=== PATIENT | female | born 1950 | race Caucasian/White ===

== ENCOUNTER → 2017-07-23 | Outpatient (CLI) | payer OTHER ==
[~2017-07-23] MED LIST: ASPIR 8181 MG PO; ATORVASTATIN CA40 MG PO; AZITHROMYCIN250 MG PO; CEFDINIR300 MG PO; CLARITIN10 MG PO; DUONEB 2.5-0.5 M3 ML INH; HYDROCHLOROTH12.5 M1 PO; IMDUR 60 MG TAB60 M1 PO; JANUMET 50-5001 EACH PO; KEFLEX500 M1 PO; METOPROLOL ER-1 EAC1 PO; MUCINEX600 MG PO; NASONEX17 GM NASAL; PREDNISONE 10 M10 MG PO; PREDNISONE 20 M20 MG PO; TOPROL XL100 MG PO; TRAMADOL 50 MG50 MG PO; VITAMIN D1000 UNI1 PO; ZOLOFT100 MG PO
[2017-07-23 16:38] LABS: CHOLESTEROL 122 mg/dL (<200); HDL CHOLESTEROL 52 mg/dL (>40); LDL CHOLESTEROL 52 mg/dL (<100); TC:HDL 2.3 Ratio (Not establshd); TRIGLYCERIDE 91 mg/dL (<150); VLDL 18 mg/dL (<40)
[2017-07-23 16:40] LABS: SERUM ASSESSMENT Clear
== END ==
LOC: M.LAB 16:09
PROVIDERS: Internal Medicine Cardiovascular Disease
DX: E78.2 Mixed hyperlipidemia (principal); I10 Essential (primary) hypertension

== ENCOUNTER 2017-09-18 15:50 | Inpatient (IN) | payer OTHER ==
[~2017-09-18] VITALS: Ht 162.6 cm; Wt 98.2 kg
[~2017-09-18 15:50] MED LIST changes: -AZITHROMYCIN250 MG PO; -CEFDINIR300 MG PO; -HYDROCHLOROTH12.5 M1 PO; -KEFLEX500 M1 PO; -MUCINEX600 MG PO; -PREDNISONE 10 M10 MG PO; -TOPROL XL100 MG PO; -TRAMADOL 50 MG50 MG PO
[2017-09-18 16:19] LABS: ABSOLUTE BASOPHILS 0.1 thou/uL (0.0-0.2); ABSOLUTE EOSINOPHILS 0.2 thou/uL (0.0-0.7); ABSOLUTE LYMPHOCYTES 1.3 thou/uL (0.8-5.3); ABSOLUTE MONOCYTES 0.6 thou/uL (0.0-1.2); ABSOLUTE NEUTROPHILS 6.1 thou/uL (1.6-8.1); BASOPHILS 0.8 %; EOSINOPHILS 2.6 %; HEMATOCRIT 42.4 % (37.0-47.0); HEMOGLOBIN 14.2 gm/dL (12.0-15.0); LYMPHOCYTES 15.4 %; MCH 30.7 pg (26.0-34.0); MCHC 33.5 g/dL (28.0-37.0); MCV 91.5 fL (80.0-100.0); MONOCYTES 7.4 %; MPV 8.4 fl. (7.2-11.1); NUCLEATED RBCS 0 /100WBC; PLATELET COUNT* 281 thou/uL (150-400); POLYS 73.8 %; RBC 4.64 mil/uL (4.20-5.00); RDW-CV 14.1 % (10.5-14.5); WBC 8.3 thou/uL (4.0-11.0)
[2017-09-18 16:29] LABS: ANION GAP 5 mmol/L (7-16); APTT 23.8 Seconds (25.0-31.3); BUN 7 mg/dL (7-18); CALCIUM 9.1 mg/dL (8.5-10.1); CHLORIDE 100 mmol/L (98-107); CO2 30 mmol/L (21-32); CREATININE 0.7 mg/dL (0.6-1.3); GLUCOSE 242 mg/dL (70-99); INR 1.1; POTASSIUM 3.8 mmol/L (3.5-5.1); PROTIME 10.3 Seconds (9.20-11.50); SODIUM 135 mmol/L (136-145)
[2017-09-18 16:39] LABS: ALBUMIN 3.7 g/dL (3.4-5.0); ALKALINE PHOSPHATASE 94 U/L (46-116); LIPASE 118 U/L (73-393); MAGNESIUM 1.7 mg/dL (1.8-2.4); NT-PRO BRAIN NAT PEPTIDE 522 pg/mL (<300); SGOT 22 U/L (15-37); SGPT 39 U/L (30-65); TOTAL BILIRUBIN 0.4 mg/dL (<0.1-1.0); TOTAL PROTEIN 7.9 g/dL (6.4-8.2); TROPONIN-I LEVEL <0.06 ng/mL (<0.06)
[2017-09-18 18:30] VITALS: BP 168/74
[2017-09-18 19:05] VITALS: BP 168/73
[2017-09-18 21:00] VITALS: BP 148/63
[2017-09-18] MEDS ORDERED: CLARITIN10 MG PO (22:34)
[2017-09-18] MEDS ORDERED: JANUMET 50-5001 EACH PO (22:34)
[2017-09-18] MEDS ORDERED: TOPROL XL100 MG PO (22:37)
[2017-09-18] MEDS ORDERED: HYDROCHLOROTH12.5 M1 PO (22:37)
[2017-09-18] MEDS ORDERED: TRAMADOL 50 MG50 MG PO (22:38)
[2017-09-19] VITALS: BP 153/85
[2017-09-19 04:00] VITALS: BP 184/98
[2017-09-19 04:42] LABS: HEMATOCRIT 45.3 % (37.0-47.0); HEMOGLOBIN 14.9 gm/dL (12.0-15.0); MCH 30.6 pg (26.0-34.0); MCV 92.9 fL (80.0-100.0); MPV 8.1 fl. (7.2-11.1); RBC 4.87 mil/uL (4.20-5.00); RDW-CV 13.7 % (10.5-14.5); WBC 6.3 thou/uL (4.0-11.0)
[2017-09-19 04:56] LABS: ALBUMIN 3.5 g/dL (3.4-5.0); CALCIUM 9.2 mg/dL (8.5-10.1); CREATININE 0.7 mg/dL (0.6-1.3); MAGNESIUM 2.1 mg/dL (1.8-2.4); POTASSIUM 4.1 mmol/L (3.5-5.1); TOTAL BILIRUBIN 0.4 mg/dL (<0.1-1.0)
[2017-09-19 08:15] VITALS: BP 136/73
--- NOTE | 2017-09-19 10:42 | EKG ---
[place] [address] ELECTROCARDIOGRAM REPORT Name: ETIENNE VARGAS Room: [address] IN [facility]#: [id number] Admission: 09/18/17 Attend Phys: Rhiannon Thomas MD Discharge: Date of : 50 Report #: [id number] THIS REPORT FOR: //name// [facility] ED Test Date: 2017-09-18 Test Time: 16:18:44 Pat Name: ETIENNE VARGAS Department: Room: Gender: F Turkey Pinner: Chi HARPER : 1950 Requested By: Julius Lopez Order Number: [id number] MD: Edson Woods Measurements Intervals [place] Rate: 82 P: 65 [place]: 123 QRS: 84 QRSD: 131 T: 24 QT: 394 QTc: 461 Interpretive Statements Sinus rhythm Left atrial enlargement Right bundle branch block No previous ECG available for comparison Electronically Signed On 09-19-2017 10:42:40 CDT by Edson Woods [email or web address] <ELECTRONICALLY SIGNED> By: Edson Woods MD, [facility] 09/19/17 1042 1618 17 Edson Woods MD, FACC /EPI
[2017-09-19 11:57] VITALS: BP 119/47
[2017-09-19 15:38] VITALS: BP 108/50
[2017-09-19 19:50] VITALS: BP 145/56
[2017-09-20 03:54] VITALS: BP 122/53
[2017-09-20 08:00] VITALS: BP 128/52
[2017-09-20 16:20] VITALS: BP 111/41
[2017-09-20 20:20] VITALS: BP 120/53
[2017-09-21 04:35] LABS: HEMATOCRIT 42.6 % (37.0-47.0); HEMOGLOBIN 13.9 gm/dL (12.0-15.0); MCH 30.2 pg (26.0-34.0); MCHC 32.5 g/dL (28.0-37.0); MCV 92.9 fL (80.0-100.0); MPV 8.9 fl. (7.2-11.1); RBC 4.58 mil/uL (4.20-5.00); RDW-CV 14.2 % (10.5-14.5); WBC 11.9 thou/uL (4.0-11.0)
[2017-09-21 05:07] LABS: CALCIUM 9.2 mg/dL (8.5-10.1); CREATININE 0.9 mg/dL (0.6-1.3); POTASSIUM 4.4 mmol/L (3.5-5.1)
[2017-09-21 05:16] LABS: MAGNESIUM 2.1 mg/dL (1.8-2.4)
[2017-09-21] MEDS ORDERED: PREDNISONE 10 M10 MG PO (08:09)
[2017-09-21] MEDS ORDERED: AZITHROMYCIN250 MG PO (08:09)
[2017-09-21] MEDS ORDERED: CEFDINIR300 MG PO (08:09)
[2017-09-21] MEDS ORDERED: MUCINEX600 MG PO (08:09)
[2017-09-21 09:00] VITALS: BP 153/83
[2017-09-21 17:46] VITALS: BP 153/83
[2017-09-21 17:54] VITALS: BP 153/83
== END 2017-09-21 18:00 | disposition home or self-care (01) | DRG 193 ==
LOC: M.ERS 15:50 → M.TBA-ER 17:27 → M.2W 17:27 → M.ORTHSURG 09-20 17:47
PROVIDERS: Emergency Medicine Emergency Medical Services; ADMIT Internal Medicine
DX: J18.9 Pneumonia, unspecified organism (principal); J96.01 Acute respiratory failure with hypoxia; J44.1 Chronic obstructive pulmonary disease with (acute) exacerbation; R65.10 Systemic inflammatory response syndrome (SIRS) of non-infectious origin without acute organ dysfunction; J44.0 Chronic obstructive pulmonary disease with (acute) lower respiratory infection; I10 Essential (primary) hypertension; I25.2 Old myocardial infarction; J20.8 Acute bronchitis due to other specified organisms; E11.9 Type 2 diabetes mellitus without complications; I25.10 Atherosclerotic heart disease of native coronary artery without angina pectoris; Z86.73 Personal history of transient ischemic attack (TIA), and cerebral infarction without residual deficits; Z95.5 Presence of coronary angioplasty implant and graft; Z90.710 Acquired absence of both cervix and uterus; Z87.891 Personal history of nicotine dependence; Z90.49 Acquired absence of other specified parts of digestive tract; Z79.2 Long term (current) use of antibiotics; Z79.4 Long term (current) use of insulin; Z79.899 Other long term (current) drug therapy

== ENCOUNTER 2018-01-08 12:51 | Inpatient (IN) | payer OTHER ==
[~2018-01-08] VITALS: Ht 162.6 cm; Wt 99.8 kg
[~2018-01-08 12:51] MED LIST changes: +AZITHROMYCIN250 MG PO; +CEFDINIR300 MG PO; +HYDROCHLOROTH12.5 M1 PO; +MUCINEX600 MG PO; +PREDNISONE 10 M10 MG PO; +TOPROL XL100 MG PO; +TRAMADOL 50 MG50 MG PO
[2018-01-08 13:02] VITALS: BP 138/64
[2018-01-08 13:35] LABS: ABSOLUTE BASOPHILS 0.1 thou/uL (0.0-0.2); ABSOLUTE EOSINOPHILS 0.2 thou/uL (0.0-0.7); ABSOLUTE LYMPHOCYTES 1.6 thou/uL (0.8-5.3); ABSOLUTE MONOCYTES 0.5 thou/uL (0.0-1.2); ABSOLUTE NEUTROPHILS 7.3 thou/uL (1.6-8.1); BASOPHILS 1.2 %; EOSINOPHILS 2.2 %; HEMATOCRIT 42.1 % (37.0-47.0); HEMOGLOBIN 13.8 gm/dL (12.0-15.0); LYMPHOCYTES 16.4 %; MCH 30.4 pg (26.0-34.0); MCHC 32.7 g/dL (28.0-37.0); MCV 92.8 fL (80.0-100.0); MONOCYTES 5.5 %; MPV 7.9 fl. (7.2-11.1); NUCLEATED RBCS 0 /100WBC; PLATELET COUNT* 293 thou/uL (150-400); POLYS 74.7 %; RBC 4.54 mil/uL (4.20-5.00); RDW-CV 13.7 % (10.5-14.5); WBC 9.8 thou/uL (4.0-11.0)
[2018-01-08 13:53] LABS: APTT 22.4 Seconds (25.0-31.3)
[2018-01-08 13:56] LABS: ANION GAP 4 mmol/L (7-16); BUN 13 mg/dL (7-18); CALCIUM 8.8 mg/dL (8.5-10.1); CHLORIDE 103 mmol/L (98-107); CO2 32 mmol/L (21-32); CREATININE 1.2 mg/dL (0.6-1.3); GLUCOSE 152 mg/dL (70-99); POTASSIUM 4.3 mmol/L (3.5-5.1); SODIUM 139 mmol/L (136-145)
[2018-01-08 14:28] LABS: ALBUMIN 3.4 g/dL (3.4-5.0); ALKALINE PHOSPHATASE 74 U/L (46-116); LIPASE 213 U/L (73-393); MAGNESIUM 1.6 mg/dL (1.8-2.4); NT-PRO BRAIN NAT PEPTIDE 275 pg/mL (<300); SGOT 26 U/L (15-37); SGPT 26 U/L (30-65); TOTAL BILIRUBIN 0.4 mg/dL (<0.1-1.0); TOTAL PROTEIN 7.2 g/dL (6.4-8.2); TROPONIN-I LEVEL <0.06 ng/mL (<0.06)
[2018-01-08 14:41] VITALS: BP 132/56
[2018-01-08] MEDS ORDERED: CLARITIN10 MG PO (15:07)
[2018-01-08 15:53] VITALS: BP 132/56
--- NOTE | 2018-01-08 17:06 | EKG ---
[place] [address] ELECTROCARDIOGRAM REPORT Name: ETIENNE VARGAS Room: [address] ADM IN .R.#: [id number] Admission: 01/08/18 Attend Phys: Rosemary Colorado Discharge: Date of : 50 Report #: [id number] THIS REPORT FOR: //name// [facility] ED Test Date: 2018-01-08 Test Time: 13:06:52 Pat Name: ETIENNE VARGAS Department: Room: [facility] Gender: F Gerentological Physiotherapist: Rosemary CROFT : 1950 Requested By: Daniel Pereira Order Number: [id number] MD: Eduar Welch Measurements Intervals [place] Rate: 77 P: [place]: QRS: 83 QRSD: 129 T: 19 QT: 404 QTc: 458 Interpretive Statements Atrial fibrillation Right bundle branch block Compared to ECG 09/18/2017 16:18:44 Sinus rhythm no longer present Atrial abnormality no longer present Electronically Signed On 01-08-2018 17:06:01 CDT by Eduar Welch [email or web address] <ELECTRONICALLY SIGNED> By: Eduar Welch MD, [facility] 01/08/18 1706 1306 1306 Eduar Welch MD, [facility] /EPI
[2018-01-08 20:00] VITALS: BP 166/67
[2018-01-09] VITALS: BP 145/70
[2018-01-09 04:00] VITALS: BP 131/61
--- NOTE | 2018-01-09 05:17 | NUR ---
ASSUMED PATIENT CARE AT 1900. PATIENT ALERT AND ORIENTED TIMES FOUR. NO COMPLAINTS OF PAIN OR DISCOMFORT NOTED THROUGHOUT SHIFT. IV PATENT. REMAINS ON O2 2L VIA NC. PATIENT EDUCATION DONE ON THE EFFECTS OF SOLU-MEDROL ON BLOOD SUGARS, ALAYING PATIENT CONCERNS. PATIENT EDUCATION CONTINUED WITH MEDICATIONS AND THEIR SIDE EFFECTS. UP AD LATANYA IN ROOM. CARD MAKER AND HOURLY ROUNDING COMPLETED DOCUMENTED.
[2018-01-09 08:35] VITALS: BP 141/75
[2018-01-09 12:00] VITALS: BP 138/56
--- NOTE | 2018-01-09 15:47 | NUR ---
SW met with pt to complete initial assessment, introduce self, and SW role. Pt alert, oriented. Pt lives at home with her friends. Pt has hx of HH and SNF at [facility]. Pt has a nebulizer through [facility]. Pt does not have oxygen at home but pt says she thinks she needs it. SW sent information to [facility] and if ordered at [place], SW explained to pt that SW could assist with ordering oxygen for home if pt does qualify. Pt does not anticipate any other needs at this time.
[2018-01-09 16:37] VITALS: BP 118/51
--- NOTE | 2018-01-09 17:32 | NUR ---
PATIENT HAS BEEN ALERT AND ORIENTED TODAY, VERY PLEASANT. UP AD LATANYA IN ROOM, CALL LIGHT IS IN REACH. HAS HAD NO COMMPLAINTS OF PAIN TODAY. VITAL SIGNS HAVE BEEN STABLE ON 2 LITERS OF OXYGEN. WILL CONTINUE TO MONITOR.
[2018-01-09 20:30] VITALS: BP 133/73
[2018-01-10] VITALS (7 sets, daily range): BP systolic 101–138; BP diastolic 40–72
--- NOTE | 2018-01-10 05:20 | NUR ---
PT SLEPT MOST OF SHIFT. ASSESSMENT DOCUMENTED. MEDS GIVEN PER E-MAY. IV PATENT. PT REMAINED ON 2L NC THIS SHIFT. NO REPORTS OF PAIN. NO CONCERNS AT THIS TIME, WILL CONTINUE WITH PLAN OF CARE.
[2018-01-10] MEDS ORDERED: KEFLEX500 M1 PO (11:12)
[2018-01-10] MEDS ORDERED: PREDNISONE 10 M10 MG PO (11:12)
--- NOTE | 2018-01-10 12:49 | NUR ---
Pt to dc to home today and will need home o2. CM will referral, o2 order, and ex ox to [facility] once available, asked for tank to be delievered to Pt's room.
--- NOTE | 2018-01-10 16:03 | NUR ---
PATIENT HAS BEEN ALERT AND ORIENTED TODAY VERY PLEASANT. UP AD LATANYA IN ROOM, VITAL SIGNS STABLE ON 2 LITERS OF OXYGEN. NO COMPLAINTS OF PAIN TODAY. PATIENT IS BEING DISCHARGED TO HOME WITH HOME OXYGEN TO USE DURING WITH ACTIVITY. DISCHARGE INSTRUCTIONS AND PRESCRIPTIONS GIVEN TO PATIENT, QUESTIONS ANSWERED FOR PATIENT. LEFT VIA WHEELCHAIR TO HOME.
== END 2018-01-10 16:05 | disposition home or self-care (01) | DRG 871 ==
LOC: M.ERS 12:51 → M.TBA-ER 14:25 → M.3W 14:25
PROVIDERS: Family Medicine; ADMIT Internal Medicine
DX: A41.9 Sepsis, unspecified organism (principal); J96.01 Acute respiratory failure with hypoxia; J69.0 Pneumonitis due to inhalation of food and vomit; J44.1 Chronic obstructive pulmonary disease with (acute) exacerbation; J44.0 Chronic obstructive pulmonary disease with (acute) lower respiratory infection; I10 Essential (primary) hypertension; I25.10 Atherosclerotic heart disease of native coronary artery without angina pectoris; E11.9 Type 2 diabetes mellitus without complications; I25.2 Old myocardial infarction; Z95.5 Presence of coronary angioplasty implant and graft; Z86.73 Personal history of transient ischemic attack (TIA), and cerebral infarction without residual deficits; Z90.710 Acquired absence of both cervix and uterus; Z90.49 Acquired absence of other specified parts of digestive tract; Z87.891 Personal history of nicotine dependence; Z79.899 Other long term (current) drug therapy; Z23 Encounter for immunization; J20.9 Acute bronchitis, unspecified

== ENCOUNTER → 2020-10-24 | Outpatient (CLI) | payer OTHER ==
[~2020-10-24] MED LIST changes: +KEFLEX500 M1 PO
[2020-10-24 15:35] LABS: ALBUMIN 3.8 g/dL (3.4-5.0); ALKALINE PHOSPHATASE 72 U/L (46-116); ANION GAP 6 mmol/L (7-16); BUN 17 mg/dL (7-18); CHLORIDE 100 mmol/L (98-107); CHOLESTEROL 138 mg/dL (<200); CO2 33 mmol/L (21-32); CREATININE 1.1 mg/dL (0.6-1.3); GLUCOSE 308 mg/dL (70-99); HDL CHOLESTEROL 42 mg/dL (>40); LDL CHOLESTEROL 58 mg/dL (<100); POTASSIUM 4.5 mmol/L (3.5-5.1); SERUM ASSESSMENT Clear; SGOT 14 U/L (15-37); SGPT 27 U/L (30-65); SODIUM 139 mmol/L (136-145); TC:HDL 3.3 Ratio (Not establshd); TOTAL BILIRUBIN 0.3 mg/dL (<0.1-1.0); TOTAL PROTEIN 7.3 g/dL (6.4-8.2); TRIGLYCERIDE 193 mg/dL (<150); VLDL 39 mg/dL (<40)
== END ==
LOC: M.LAB 15:03
PROVIDERS: ATTEND Nurse Practitioner
DX: I10 Essential (primary) hypertension (principal); E78.2 Mixed hyperlipidemia; E87.6 Hypokalemia

== ENCOUNTER 2021-03-17 19:40 | Inpatient (IN) | payer OTHER ==
[~2021-03-17] VITALS: Ht 160 cm; Wt 99.8 kg
[2021-03-17 19:43] VITALS: BP 151/126
[2021-03-17] MEDS ORDERED: LEXAPRO 10 MG T10 M1 PO (20:23)
[2021-03-17] MEDS ORDERED: NITROSTAT0.4 M1 PO (20:25)
[2021-03-17] MEDS ORDERED: FLEXERIL PO (20:26)
[2021-03-17] MEDS ORDERED: CEFDINIR300 MG PO (20:26)
[2021-03-17] MEDS ORDERED: FUROSEMIDE 40 M40 MG PO (20:27)
[2021-03-17] MEDS ORDERED: ALPRAZOLAM XR3 MG PO (20:27)
[2021-03-17] MEDS ORDERED: PIOGLITAZONE30 MG PO (20:28)
[2021-03-17] MEDS ORDERED: KLOR-CON 1010 MEQ PO (20:29)
[2021-03-17] MEDS ORDERED: ANORO ELLIPTA1 EACH INH (20:29)
[2021-03-17 20:30] LABS: ABSOLUTE BASOPHILS 0.1 thou/uL (0.0-0.2); ABSOLUTE EOSINOPHILS 0.1 thou/uL (0.0-0.7); ABSOLUTE LYMPHOCYTES 1.3 thou/uL (0.8-5.3); ABSOLUTE MONOCYTES 0.4 thou/uL (0.0-1.2); ABSOLUTE NEUTROPHILS 6.5 thou/uL (1.6-8.1); BASOPHILS 0.7 %; EOSINOPHILS 1.4 %; HEMATOCRIT 36.9 % (37.0-47.0); HEMOGLOBIN 11.7 gm/dL (12.0-15.0); LYMPHOCYTES 15.2 %; MCH 29.6 pg (26.0-34.0); MCHC 31.8 g/dL (28.0-37.0); MCV 93.2 fL (80.0-100.0); MONOCYTES 4.6 %; MPV 7.9 fl. (7.2-11.1); NUCLEATED RBCS 0 /100WBC; PLATELET COUNT* 250 thou/uL (150-400); POLYS 78.1 %; RBC 3.96 mil/uL (4.20-5.00); RDW-CV 15.2 % (10.5-14.5); WBC 8.3 thou/uL (4.0-11.0)
[2021-03-17 20:35] LABS: INFLUENZA A ANTIGEN Negative (Negative); INFLUENZA B ANTIGEN Negative (Negative)
[2021-03-17 20:39] LABS: CALCIUM 8.3 mg/dL (8.5-10.1); CREATININE 1.3 mg/dL (0.6-1.3); POTASSIUM 4.2 mmol/L (3.5-5.1)
[2021-03-17 20:50] LABS: ALBUMIN 3.2 g/dL (3.4-5.0); MAGNESIUM 2.1 mg/dL (1.8-2.4); TOTAL BILIRUBIN 0.2 mg/dL (<0.1-1.0); TOTAL PROTEIN 6.9 g/dL (6.4-8.2)
[2021-03-17 23:52] LABS: URINE BILIRUBIN NEGATIVE (Negative); URINE BLOOD 2+ (Negative); URINE CLARITY CLEAR; URINE COLOR YELLOW; URINE GLUCOSE-RANDOM 2+ (Negative); URINE KETONES TRACE (Negative); URINE LEUKOCYTES-REFLEX NEGATIVE (Negative); URINE NITRITE-REFLEX NEGATIVE (Negative); URINE PROTEIN 1+ (Negative); URINE SPECIFIC GRAVITY >= 1.030 (1.005-1.030); URINE UROBILINOGEN 0.2 E.U./dl (0.2-1.0)
[2021-03-18] VITALS (8 sets, daily range): BP systolic 117–155; BP diastolic 42–74
[2021-03-18 00:03] LABS: BACTERIA-REFLEX >30 Many /HPF (None Seen); CASTS None Seen /LPF (None Seen); MUCUS 4-6 Moderate strn/LPF (None Seen); SQUAMOUS 4-10 Moderate /LPF (0-3)
[2021-03-18 00:04] LABS: CRYSTALS None Seen /LPF (None Seen)
[2021-03-18 10:04] LABS: CHOLESTEROL 150 mg/dL (<200); HDL CHOLESTEROL 59 mg/dL (>40); LDL CHOLESTEROL 82 mg/dL (<100); TC:HDL 2.5 Ratio (Not establshd); TRIGLYCERIDE 47 mg/dL (<150); VLDL 9 mg/dL (<40)
[2021-03-18 10:05] LABS: SERUM ASSESSMENT Clear
--- NOTE | 2021-03-18 10:10 | EKG ---
[place] [address] ELECTROCARDIOGRAM REPORT Name: ETIENNE VARGAS RICHARD Room: [address] M.R.#: [id number] Admission: 03/17/21 Attend Phys: Lenny Booth, Discharge: Date of : 50 Date of Service: 03/17/211956 Report #: [id number] THIS REPORT FOR: //name// [facility] ED Test Date: 2021-03-17 Test Time: 19:57:13 Pat Name: ETIENNE VARGAS Department: Room: [facility] Gender: F Linen Room Attendant: DC : 1950 Requested By: Maki Desai Order Number: [id number] MD: Edson Woods Measurements Intervals [place] Rate: 101 P: 50 [place]: 126 QRS: 90 QRSD: 130 T: -10 QT: 383 QTc: 497 Interpretive Statements Sinus tachycardia Probable left atrial enlargement RBBB and LPFB Compared to ECG 01/08/2018 13:06:52 Left posterior fascicular block now present rate has increased Electronically Signed On 03-18-2021 10:10:22 RETAIL LOSS PREVENTION OFFICER by Edson Woods [email or web address] <ELECTRONICALLY SIGNED> By: Edson Woods MD, [facility] 03/18/21 1010 56 56 Edson Woods MD, [facility] /EPI
--- NOTE | 2021-03-18 10:20 | EKG ---
[place] [address] ELECTROCARDIOGRAM REPORT Name: ROME VARGASJOMAR RAMOS Room: [address] M.R.#: [id number] Admission: 03/17/21 Attend Phys: Lenny Booth, Discharge: Date of : 50 Date of Service: 03/18/21 0557 Report #: [id number] THIS REPORT FOR: //name// [facility] ED Test Date: 2021-03-18 Test Time: 05:57:57 Pat Name: ETIENNE VARGAS Department: Room: [place] [address] Gender: F Creative Writing English Professor: COLE : 1950 Requested By: Maki Desai Order Number: [id number] MD: Edson Woods Measurements Intervals [place] Rate: 95 P: 51 [place]: 142 QRS: 88 QRSD: 130 T: -12 QT: 383 QTc: 482 Interpretive Statements Sinus rhythm Probable left atrial enlargement Right bundle branch block Compared to ECG 03/17/2021 19:57:13 Sinus tachycardia no longer present Electronically Signed On 03-18-2021 10:19:57 REPORTER ANCHOR by Edson Woods [email or web address] <ELECTRONICALLY SIGNED> By: Edson Woods MD, [facility] 03/18/21 1019 0557 0557 Edosn Woods MD, [facility] /EPI
[2021-03-18 14:54] LABS: APTT 22.9 Seconds (25.0-31.3); PROTIME 10.3 Seconds (9.20-11.50)
[2021-03-19] VITALS (7 sets, daily range): BP systolic 104–148; BP diastolic 44–57
[2021-03-19 07:19] LABS: ABSOLUTE BASOPHILS 0.1 thou/uL (0.0-0.2); ABSOLUTE EOSINOPHILS 0.2 thou/uL (0.0-0.7); ABSOLUTE LYMPHOCYTES 2.4 thou/uL (0.8-5.3); ABSOLUTE MONOCYTES 0.5 thou/uL (0.0-1.2); ABSOLUTE NEUTROPHILS 5.3 thou/uL (1.6-8.1); BASOPHILS 0.9 %; EOSINOPHILS 1.9 %; HEMATOCRIT 31.6 % (37.0-47.0); HEMOGLOBIN 10.3 gm/dL (12.0-15.0); LYMPHOCYTES 28.8 %; MCH 30.2 pg (26.0-34.0); MCHC 32.6 g/dL (28.0-37.0); MCV 92.7 fL (80.0-100.0); NUCLEATED RBCS 0 /100WBC; PLATELET COUNT* 237 thou/uL (150-400); POLYS 62.4 %; WBC 8.5 thou/uL (4.0-11.0)
--- NOTE | 2021-03-19 13:15 | EKG ---
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: : 1950 Requested By: Lenny Booth Order Number: [id number] Reading MD: Ashwin Martinez Measurements Intervals [place] Rate: 115 P: 71 [place]: 137 QRS: 91 QRSD: 137 T: -18 QT: 352 QTc: 487 Interpretive Statements Sinus tachycardia Probable left atrial enlargement RBBB and LPFB Repol abnrm suggests ischemia, diffuse leads Compared to ECG 03/18/2021 05:57:57 Left posterior fascicular block now present Possible ischemia now present Sinus rate has increased Electronically Signed On 03-19-2021 13:14:50 CORE COMPOSER FEEDER by Ashwin Martinez [email or web address] <ELECTRONICALLY SIGNED> By: Ashwin Martinez MD, [facility] 03/19/21 1314 0853 0853 Ashwin Martinez MD, [facility] /EPI
[2021-03-20] VITALS (16 sets, daily range): BP systolic 119–143; BP diastolic 39–66
[2021-03-21 05:01] LABS: ABSOLUTE BASOPHILS 0.1 thou/uL (0.0-0.2); ABSOLUTE EOSINOPHILS 0.2 thou/uL (0.0-0.7); ABSOLUTE LYMPHOCYTES 1.8 thou/uL (0.8-5.3); ABSOLUTE MONOCYTES 0.5 thou/uL (0.0-1.2); ABSOLUTE NEUTROPHILS 4.3 thou/uL (1.6-8.1); BASOPHILS 1.1 %; EOSINOPHILS 3.6 %; HEMOGLOBIN 10.3 gm/dL (12.0-15.0); LYMPHOCYTES 25.9 %; MCH 29.8 pg (26.0-34.0); MCHC 32.2 g/dL (28.0-37.0); MCV 92.6 fL (80.0-100.0); MONOCYTES 6.9 %; MPV 9.1 fl. (7.2-11.1); NUCLEATED RBCS 0 /100WBC; PLATELET COUNT* 230 thou/uL (150-400); POLYS 62.5 %; RBC 3.46 mil/uL (4.20-5.00); RDW-CV 14.9 % (10.5-14.5); WBC 6.8 thou/uL (4.0-11.0)
[2021-03-21 05:27] LABS: CALCIUM 8.2 mg/dL (8.5-10.1); CREATININE 0.8 mg/dL (0.6-1.3); POTASSIUM 4.3 mmol/L (3.5-5.1)
[2021-03-21 06:32] VITALS: BP 156/54
[2021-03-21 08:47] VITALS: BP 145/53
[2021-03-21 12:12] LABS: pH 7.358 (7.340-7.450)
[2021-03-21 12:14] VITALS: BP 137/61
[2021-03-21 12:18] LABS: PCO2 51.3 mmHg (35.0-45.0)
--- NOTE | 2021-03-21 13:49 | EKG ---
[place] [address] ELECTROCARDIOGRAM REPORT Name: ALICIAETIENNEJOMAR RAMOS Room: [address] ADM IN ..#: [id number] Admission: 03/19/21 Attend Phys: Lenny Booth, Discharge: Date of : 50 Date of Service: 03/21/21 1012 Report #: [id number] THIS REPORT FOR: //name// [facility] Test Date: 2021-03-21 Test Time: 10:12:34 Pat Name: ETIENNE VARGAS Department: Room: [address] Gender: F Software Recruiter: CYNTHIA : 1950 Requested By: Sunshine Robles Order Number: [id number] Sean MD: Ashwin Martinez Measurements Intervals [place] Rate: 76 P: 53 [place]: 125 QRS: 88 QRSD: 140 T: -36 QT: 416 QTc: 468 Interpretive Statements Sinus rhythm Probable left atrial enlargement Right bundle branch block with right axis deviation Baseline wander in lead(s) V5,V6 Compared to ECG 03/18/2021 08:53:53 Sinus tachycardia no longer present Right axis deviation persists Early repolarization no longer present Nonspecific ST-T alterations persist Electronically Signed On 03-21-2021 13:49:09 CINEMA OPERATOR by Ashwin Martinez [email or web address] <ELECTRONICALLY SIGNED> By: Ashwin Martinez MD, [facility] 03/21/21 1349 1012 1012 Ashwin Martinez MD, [facility] /EPI
[2021-03-21 17:31] VITALS: BP 142/66
[2021-03-21 17:35] VITALS: BP 136/77
[2021-03-21 20:00] VITALS: BP 157/61
[2021-03-22] VITALS (15 sets, daily range): BP systolic 112–193; BP diastolic 35–81
[2021-03-22 04:05] LABS: ABSOLUTE EOSINOPHILS 0.3 thou/uL (0.0-0.7); ABSOLUTE LYMPHOCYTES 1.6 thou/uL (0.8-5.3); ABSOLUTE MONOCYTES 0.5 thou/uL (0.0-1.2); ABSOLUTE NEUTROPHILS 4.5 thou/uL (1.6-8.1); BASOPHILS 0.3 %; EOSINOPHILS 4.3 %; HEMATOCRIT 32.6 % (37.0-47.0); HEMOGLOBIN 10.3 gm/dL (12.0-15.0); LYMPHOCYTES 23.7 %; MCH 29.6 pg (26.0-34.0); MCHC 31.7 g/dL (28.0-37.0); MCV 93.5 fL (80.0-100.0); MONOCYTES 6.6 %; MPV 8.1 fl. (7.2-11.1); NUCLEATED RBCS 0 /100WBC; PLATELET COUNT* 219 thou/uL (150-400); POLYS 65.1 %; RBC 3.49 mil/uL (4.20-5.00); RDW-CV 14.5 % (10.5-14.5); WBC 6.9 thou/uL (4.0-11.0)
[2021-03-22 04:26] LABS: CALCIUM 8.4 mg/dL (8.5-10.1); CREATININE 0.7 mg/dL (0.6-1.3); POTASSIUM 4.1 mmol/L (3.5-5.1)
[2021-03-22 05:37] LABS: BE 3.5 mmol/L (-2 to +3); PO2 108.4 mmHg (75.0-100.0); pH 7.339 (7.340-7.450)
[2021-03-22 05:41] LABS: PCO2 57.8 mmHg (35.0-45.0)
--- NOTE | 2021-03-22 14:57 | CARD ---
[address] [address] CARDIAC CATH REPORT Name: ETIENNE VARGAS Room: [address] IN .R.#: [id number] Admission: 03/19/21 Attend Phys: Lenny Booth MD Discharge: Date of : 50 Report #: [id number] THIS REPORT FOR: cc: Lance Gu Brad DO Holkins,Ashwin Jack MD [facility] ~ APPROVED REPORT Study performed: 03/22/2021 08:49:56 Patient Details Patient Status: In-Patient Room #: 221 The patient is a 70 year-old female Event Personnel Khadijah Sanchez RTR, Dr Welch, Dr. Martinez, Shaan Miramontes RN, Sharda Vance RTR Procedures Performed Staged PCI of mid-right coronary Previous Procedures/Diagnoses Previous PCI Procedure Narrative The patient was brought electively to the Cardiac Catheterization Laboratory and was prepped and draped in a sterile manner. The right femoral was infiltrated with 2% Lidocaine subcutaneous anesthesia. IV conscious sedation was used throughout procedure with appropriate monitoring and was performed in the presence of a registered nurse who was an independent trained observer other than the physician performing the procedure. The right femoral accessed via ultrasound guidance. A 6Fr [place] sheath was inserted into the right femoral artery. Coronary angiography was performed using coronary diagnostic catheters. The right coronary system was accessed and visualized with a 6Fr JR4 Guide catheter. Pre-demployment femoral angiogram was performed in ARMAS. Closure device was deployed with a 6 Fr Angioseal. There was no hematoma. Intraoperative Conscious Sedation Sedation start time: 927 Case end Time: 1022 Fentanyl 25.0 mcg Versed 3.0 [place] [address] CARDIAC CATH REPORT Name: ETIENNE VARGAS Room: [address] IN [facility]#: [id number] Admission: 03/19/21 Attend Phys: Lenny Booth MD Discharge: Date of : 50 Report #: [id number] Fluoro Time: 18.8 minutes Dose: DAP 940085 cGycm2 1785 mGy Contrast Type and Amount: Visipaque 160 ml Coronary Angiography The patient's coronary anatomy is right dominant. Diagnostic Cath Right Coronary 40% irregular proximal stenosis with 95% heavily calcified mid vessel stenosis and 50% narrowing at the acute margin Left Ventriculography Left Ventriculography was not performed. Hemodynamics The aortic pressure is 117/46 mmHg with a mean of 72 mmHg. PCI Technique Lesion Anticoagulation was achieved with Angiomax. Percutaneous coronary intervention was performed on the mid right coronary artery. The lesion stenosis prior to intervention was 95% with ROZINA 3 flow. A 6Fr JR4 Guide Catheter was used to engage the Right ostium. A BMW 190cm Interventional Guidewire was used to cross the lesion. BALLOON DILATION A Balloon catheter 1.5 x 12 mini Trek was inserted and inflated up to 16atm for 13seconds. Additional Inflation: 20atm for 12seconds. 2.25 x 12 trek inflated to 14 to 16 carmina; 2.5 x 12 NC trek inflated to 16 to 18 carmina; 2.75 x 12 NC trek inflated to 16-18 STENT DEPLOYMENT A 2.5 x 12 [place] stent was inserted and inflated up to 12atm for 13seconds. Additional Inflation: 16atm for 9seconds. POST STENT DEPLOYMENT BALLOON DILATION A Balloon catheter 2.75 x 8 NC Trek was inserted and inflated up to 16atm for 14seconds. Additional Inflation: 18atm for 9seconds. Final angiography reveals 10 % stenosis with ROZINA 3 flow. COMMENTS The PCI was technically complex by virtue of severe calcification of the mid right coronary stenosis [place] [address] CARDIAC CATH REPORT Name: ETIENNE VARGAS Room: [address] IN [facility]#: [id number] Admission: 03/19/21 Attend Phys: Lenny Booth MD Discharge: Date of : 50 Report #: [id number] significant lesion preparation prior to drug-eluting stent deployment. Conclusion 1. Severe right coronary stenosis with 40% proximal and 95% heavily calcified mid and 50% acute marginal stenoses 2. Normal systemic pressure throughout the study 3. Successful PCI with deployment of drug-eluting stent at the site of 95% heavily calcified mid right coronary stenosis with 10% residual narrowing and ROZINA-3 flow to the distal vessel Recommendations Cardiac Risk Reduction Program Aggressive Medical Therapy Medications Administered Aggrastat bolus and infusion Diagnostic Cath Approved by: Ashwin Martinez MD Date/Time: 03/22/2021 14:53:30 <ELECTRONICALLY SIGNED> By: Ashwin Martinez MD, [facility] 03/22/21 1457 1457 1457Ashwin Martinez MD, [facility] /INF
[2021-03-23] VITALS (8 sets, daily range): BP systolic 113–146; BP diastolic 40–54
[2021-03-23 07:26] LABS: HEMOGLOBIN 10.9 gm/dL (12.0-15.0); MCH 29.4 pg (26.0-34.0); MCHC 32.2 g/dL (28.0-37.0); MCV 91.2 fL (80.0-100.0); MPV 8.1 fl. (7.2-11.1); RBC 3.72 mil/uL (4.20-5.00); RDW-CV 14.5 % (10.5-14.5); WBC 8.5 thou/uL (4.0-11.0)
[2021-03-23 07:39] LABS: INR 1.1; PROTIME 10.9 Seconds (9.20-11.50)
[2021-03-23 07:41] LABS: ALBUMIN 3.1 g/dL (3.4-5.0); APTT 24.1 Seconds (25.0-31.3); CALCIUM 8.8 mg/dL (8.5-10.1); CREATININE 0.9 mg/dL (0.6-1.3); MAGNESIUM 2.1 mg/dL (1.8-2.4); PHOSPHORUS* 3.5 mg/dL (2.5-4.9); TOTAL BILIRUBIN 0.4 mg/dL (<0.1-1.0); TOTAL PROTEIN 6.9 g/dL (6.4-8.2)
[2021-03-23] MEDS ORDERED: EFFIENT10 MG PO (09:32)
--- NOTE | 2021-03-23 11:22 | EKG ---
[place] [address] ELECTROCARDIOGRAM REPORT Name: ETIENNE VARGAS Room: [address] ADM IN M.R.#: [id number] Admission: 03/19/21 Attend Phys: Lenny Booth, Discharge: Date of : 50 Date of Service: 03/22/21 1524 Report #: [id number] THIS REPORT FOR: //name// [facility] Test Date: 2021-03-22 Test Time: 15:24:23 Pat Name: ETIENNE VARGAS Department: Room: [address] Gender: F Marine Engineer: - : 1950 Requested By: Eduar Welch Order Number: [id number] Sean MD: Ashwin Martinez Measurements Intervals [place] Rate: 79 P: 80 [place]: 140 QRS: 74 QRSD: 133 T: -32 QT: 421 QTc: 483 Interpretive Statements Sinus rhythm Probable left atrial enlargement Right bundle branch block Compared to ECG 03/21/2021 10:12:34 No significant interval change Electronically Signed On 03-23-2021 11:22:16 SOLE TRIMMER by Ashwin Mratinez [email or web address] <ELECTRONICALLY SIGNED> By: Ashwin Martinez MD, [facility] 03/23/21 1122 1524 1524 Ashwin Martinez MD, [facility] /EPI
[2021-03-23] MEDS ORDERED: PREDNISONE 10 M10 MG PO (12:23)
--- NOTE | 2021-03-23 15:11 | 2DMMODE ---
[place] [address] 2 D/M-MODE ECHOCARDIOGRAM Name: ETIENNE VARGAS Room: [address] IN [place].#: [id number] Admission: 03/19/21 Attend Phys: Lenny Booth, Discharge: Date of : 50 Date of Service: 03/23/21 1511 Report #: [id number] THIS REPORT FOR: cc: Lance Gu Brad DO Holkins,Ashwin Jack MD [facility] ~ APPROVED REPORT Study performed: 03/23/2021 14:21:02 EXAM: Comprehensive 2D, Doppler, and color-flow Echocardiogram Patient Location: In-Patient Room #: [facility] Status: routine BSA: 2.01 HR: 64 bpm BP: 128/45 mmHg Rhythm: NSR Other Information Study Quality: Good Indications Non STEMI 2D Dimensions IVSd: 12.28 (7-11mm) LVOT Diam: 18.58 (18-24mm) LVDd: 49.11 mm PWd: 11.47 (7-11mm) Ascending Ao: 33.27 (22-36mm) LVDs: 23.39 (25-40mm) Aortic Root: 27.31 mm Volumes Left Atrial Volume (Systole) LA ESV Index: 43.60 mL/m2 Aortic Valve AoV Peak Kevyn.: 1.67 m/s AO Peak Gr.: 11.13 mmHg LVOT Max P.00 mmHg AO Mean Gr.: 6.11 mmHg LVOT Mean P.13 mmHg LVOT Max V: 1.32 m/s AO V2 VTI: 35.17 cm LVOT Mean V: 0.80 m/s MELANY (VTI): 2.28 cm2 LVOT V1 VTI: 29.64 [place] [address] 2 D/M-MODE ECHOCARDIOGRAM Name: ETIENNE VARGAS Room: [address] IN .R.#: [id number] Admission: 03/19/21 Attend Phys: Lenny Booth, Discharge: Date of : 50 Date of Service: 03/23/21 1511 Report #: [id number] Mitral Valve E/A Ratio: 1.99 MV Decel. Time: 184.40 ms MV E Max Kevyn.: 1.07 m/s MV PHT: 53.48 ms MVA (PHT): 4.11 cm2 TDI E/Lateral E': 9.73 E/Medial E': 11.89 Medial E' Kevyn.: 0.09 m/s Lateral E' Kevyn.: 0.11 m/s Pulmonary Valve PV Peak Kevyn.: 1.13 m/s PV Peak Gr.: 5.11 mmHg Tricuspid Valve RAP Estimate: 5.00 mmHg TR Peak Gr.: 31.61 mmHg RVSP: 36.00 mmHg PA Pressure: 36.00 mmHg Left Ventricle The left ventricle is normal size. There is normal LV segmental wall motion. Mild concentric left ventricular hypertrophy. Left ventricular systolic function is normal. The left ventricular ejection fraction is within the normal range. LVEF is 60-65%. Grade IV - fixed restrictive diastolic dysfunction. Right Ventricle The right ventricle is normal size. The right ventricular systolic function is normal. Atria Left atrium is mildly dilated. The right atrium size is normal. Aortic Valve Mild aortic valve sclerosis. No aortic regurgitation is present. There is no aortic valvular stenosis. Mitral Valve Mild mitral annular calcification. Mild mitral regurgitation. No evidence of mitral valve stenosis. Tricuspid Valve The tricuspid valve is normal in structure. Mild tricuspid regurgitation. [place] [address] 2 D/M-MODE ECHOCARDIOGRAM Name: ROME VARGASJOMAR RAMOS Room: [address] IN [facility]#: [id number] Admission: 03/19/21 Attend Phys: Lenny Booth, Discharge: Date of : 50 Date of Service: 03/23/21 1511 Report #: [id number] Pulmonic Valve The pulmonary valve is normal in structure. There is no pulmonic valvular regurgitation. Great Vessels The aortic root is normal in size. IVC is normal in size and collapses >50% with inspiration. Pericardium There is no pericardial effusion. <Conclusion> The left ventricle is normal size. Mild concentric left ventricular hypertrophy. Left ventricular systolic function is normal. The left ventricular ejection fraction is within the normal range. LVEF is 60-65%. Grade IV - fixed restrictive diastolic dysfunction. The right ventricle is normal size. Left atrium is mildly dilated. The right atrium size is normal. Mild aortic valve sclerosis. No aortic regurgitation is present. There is no aortic valvular stenosis. Mild mitral annular calcification. Mild mitral regurgitation. No evidence of mitral valve stenosis. The tricuspid valve is normal in structure. Mild tricuspid regurgitation. Mild pulmonary hypertension. IVC is normal in size and collapses >50% with inspiration. There is no pericardial effusion. There is normal LV segmental wall motion. <ELECTRONICALLY SIGNED> By: Ashwin Martinez MD, FACC 03/23/211510 10 10 Ashwin Martinez MD, FACC /INF
--- NOTE | 2021-03-23 17:55 | CARD ---
[address] [address] CARDIAC CATH REPORT Name: ETIENNE VARGAS RICHARD Room: [address] IN .R.#: [id number] Admission: 03/19/21 Attend Phys: Lenny Booth MD Discharge: Date of : 50 Report #: [id number] THIS REPORT FOR: cc: Lance Gu Brad DO Liston, Michael J. MD [facility] ~ APPROVED REPORT Study performed: 03/20/2021 15:10:36 Patient Details Patient Status: In-Patient Room #: The patient is a 70 year-old female Event Personnel Eduar Welch String Winding Machine Operator, Sharda Vance Kramer, Jessie RTR Monitor, Mila Feldman RN business process coordinator Performed Art Access - R radial artery Coronary Angiography Only Hemostasis with Hemoband Admission/Lab Medications/Medications given during procedure Lidocaine Subcut 4 ml, Nitroglycerin IA 200 mcg, Verapamil IA 2.5 mg, 0.9% Sodium Chloride IV 75 ml per hr, Nitroglycerin IA 100 mcg, Verapamil IA 1.25 mg Procedure Narrative The patient was brought urgently to the Cardiac Catheterization Laboratory and was prepped and draped in a sterile manner. The right wrist was infiltrated with 2% Lidocaine subcutaneous anesthesia. IV conscious sedation was used throughout procedure with appropriate monitoring and was performed in the presence of a registered nurse who was an independent trained observer other than the physician performing the procedure. A Slender [place]heath sheath was inserted into the right radial artery. Coronary angiography was performed using coronary diagnostic catheters. The right coronary system was accessed and visualized with a Diagnostic 6 Fr JR 4 catheter. The left coronary system was accessed and visualized with a Diagnostic 6 Fr JL 4 catheter. Closure device was deployed with a Fr Vasc-Band Reg 24cm. The patient tolerated the procedure well and there were no complications associated with the procedure. [place] [address] CARDIAC CATH REPORT Name: ETIENNE VARGAS Room: [address] IN [facility]#: [id number] Admission: 03/19/21 Attend Phys: Lenny Booth MD Discharge: Date of : 50 Report #: [id number] Intraoperative Conscious Sedation Sedation start time: 16:06 Case end Time: 16:22 Fentanyl 50 mcg Versed 2 mg Fluoro Time: 1.7 minutes Dose: DAP 49822 cGycm2 636 mGy Contrast Type and Amount: Visipaque 80 mL Coronary Angiography The patient's coronary anatomy is right dominant. Diagnostic Cath Left Main The left main coronary artery is free of significant disease and bifurcates into a left anterior sending and circumflex coronary artery. LAD The left intradescending coronary artery exhibits mild 20% plaquing proximally. The mid and distal portion of the vessel are free of significant disease. Diagonal 1 The first diagonal branch is minimally plaqued. Diagonal 2 The second diagonal branch is minimally plaqued. Circumflex The circumflex coronary artery has approximately 60 to 70% narrowing proximal to and distal to a stent. The remainder the vessel is free of significant disease. OM1 A large branched first obtuse marginal branch is free of significant disease. OM2 A large branch second obtuse marginal branch is free of significant disease. Right Coronary The right coronary artery has a 95% stenosis in the midportion at the takeoff of the acute marginal branch with a eccentric calcified plaque noted. Distally there are widely patent stents. R PDA The right PDA has a 50% narrowing in its midportion. RPLV The right posterior lateral LV branch has a 20% narrowing in its midportion. Left Ventriculography Left Ventriculography was not performed. Conclusion 1. Significant two-vessel coronary artery disease as outlined above. 2. Critical stenoses noted in the [place] [address] CARDIAC CATH REPORT Name: ETIENNE VARGAS Room: [address] IN [facility]#: [id number] Admission: 03/19/21 Attend Phys: Lenny Booth MD Discharge: Date of : 50 Report #: [id number] 3. Moderate stenoses noted in the mid circumflex coronary artery. Recommendations 1. Continue aggressive risk factor modification. 2. Consider percutaneous coronary intervention to the right coronary artery followed by possible intervention to the circumflex coronary artery. <ELECTRONICALLY SIGNED> By: Eduar Welch MD, FACC 03/23/211754 54 54Michaefozia Welch MD, FACC /INF
[2021-03-24] VITALS: BP 126/53
[2021-03-24 05:00] LABS: HEMATOCRIT 31.6 % (37.0-47.0); HEMOGLOBIN 10.2 gm/dL (12.0-15.0); MCH 29.9 pg (26.0-34.0); MCHC 32.2 g/dL (28.0-37.0); MCV 92.8 fL (80.0-100.0); MPV 8.4 fl. (7.2-11.1); RBC 3.41 mil/uL (4.20-5.00); RDW-CV 14.8 % (10.5-14.5)
[2021-03-24 05:35] LABS: CALCIUM 8.6 mg/dL (8.5-10.1); CREATININE 1.1 mg/dL (0.6-1.3); POTASSIUM 4.2 mmol/L (3.5-5.1)
[2021-03-24 06:08] VITALS: BP 116/44
[2021-03-24 08:28] VITALS: BP 121/67
[2021-03-24 12:00] VITALS: BP 127/51
[2021-03-24 16:00] VITALS: BP 118/54
[2021-03-24 17:04] VITALS: BP 127/51
--- NOTE | 2021-03-27 10:08 | EKG ---
[place] [address] ELECTROCARDIOGRAM REPORT Name: ETIENNE VARGAS Room: [address] DIS IN M.R.#: [id number] Admission: 03/19/21 Attend Phys: Lenny Booth, Discharge: 03/24/21 Date of : 50 Date of Service: 03/23/21 [facility] Report #: [id number] THIS REPORT FOR: //name// [facility] Test Date: 2021-03-23 Test Time: 14:22:54 Pat Name: ETIENNE VARGAS Department: Room: [address] Gender: F Alley Tender: : 1950 Requested By: Eduar Welch Order Number: [id number] Sean MD: Edson Woods Measurements Intervals [place] Rate: 65 P: 64 CA: 128 QRS: 69 QRSD: 135 T: -37 QT: 464 QTc: 483 Interpretive Statements Sinus rhythm Probable left atrial enlargement Right bundle branch block Compared to ECG 03/22/2021 15:24:23 No significant changes Electronically Signed On 03-27-2021 10:08:23 [employer]KS WORK[employer] by Edson Woods [email or web address] <ELECTRONICALLY SIGNED> By: Edson Woods MD, FAC 03/27/21 1008 142 142 Edson Woods MD, [facility] /EPI
== END 2021-03-24 18:03 | disposition home or self-care (01) | DRG 246 ==
LOC: M.ERS 19:40 → M.TBA-ER 21:47 → M.2W 21:47 → M.TBA-ER 22:30 → M.2W 03-18 10:27
PROVIDERS: Emergency Medicine; Internal Medicine; Internal Medicine Cardiovascular Disease; Registered Nurse; ADMIT Internal Medicine; ATTEND Internal Medicine
PROC: 4A023N7 Measurement of Cardiac Sampling and Pressure, Left Heart, Percutaneous Approach (ICD-10-PCS; principal; 2021-03-20)
PROC: B211YZZ Fluoroscopy of Multiple Coronary Arteries using Other Contrast (ICD-10-PCS; principal; 2021-03-20)
PROC: B211YZZ Fluoroscopy of Multiple Coronary Arteries using Other Contrast (ICD-10-PCS; 2021-03-22)
PROC: B41FYZZ Fluoroscopy of Right Lower Extremity Arteries using Other Contrast (ICD-10-PCS; 2021-03-22)
PROC: 027034Z Dilation of Coronary Artery, One Artery with Drug-eluting Intraluminal Device, Percutaneous Approach (ICD-10-PCS; 2021-03-22)
PROC: 5A0935A Assistance with Respiratory Ventilation, Less than 24 Consecutive Hours, High Flow/Velocity Cannula (ICD-10-PCS; 2021-03-22)
PROC: 5A09357 Assistance with Respiratory Ventilation, Less than 24 Consecutive Hours, Continuous Positive Airway Pressure (ICD-10-PCS; 2021-03-22)
PROC: 4A023N7 Measurement of Cardiac Sampling and Pressure, Left Heart, Percutaneous Approach (ICD-10-PCS; 2021-03-22)
PROC: 5A09357 Assistance with Respiratory Ventilation, Less than 24 Consecutive Hours, Continuous Positive Airway Pressure (ICD-10-PCS; 2021-03-23)
PROC: 5A0935A Assistance with Respiratory Ventilation, Less than 24 Consecutive Hours, High Flow/Velocity Cannula (ICD-10-PCS; 2021-03-23)
DX: I21.4 Non-ST elevation (NSTEMI) myocardial infarction (principal); J96.21 Acute and chronic respiratory failure with hypoxia; R65.11 Systemic inflammatory response syndrome (SIRS) of non-infectious origin with acute organ dysfunction; J96.22 Acute and chronic respiratory failure with hypercapnia; J44.1 Chronic obstructive pulmonary disease with (acute) exacerbation; N39.0 Urinary tract infection, site not specified; I10 Essential (primary) hypertension; I25.10 Atherosclerotic heart disease of native coronary artery without angina pectoris; E78.5 Hyperlipidemia, unspecified; E66.01 Morbid (severe) obesity due to excess calories; T50.905A Adverse effect of unspecified drugs, medicaments and biological substances, initial encounter; Z20.822 Contact with and (suspected) exposure to COVID-19; E11.9 Type 2 diabetes mellitus without complications; I25.2 Old myocardial infarction; Z95.5 Presence of coronary angioplasty implant and graft; Z86.73 Personal history of transient ischemic attack (TIA), and cerebral infarction without residual deficits; Z90.49 Acquired absence of other specified parts of digestive tract; Z90.710 Acquired absence of both cervix and uterus; Z68.39 Body mass index [BMI] 39.0-39.9, adult; Y92.89 Other specified places as the place of occurrence of the external cause; Z79.82 Long term (current) use of aspirin; Z79.899 Other long term (current) drug therapy

== ENCOUNTER 2021-04-24 11:27 | Inpatient (IN) | payer OTHER ==
[~2021-04-24] VITALS: Ht 154.9 cm; Wt 104.3 kg
[~2021-04-24 11:27] MED LIST changes: +ALPRAZOLAM XR3 MG PO; +ANORO ELLIPTA1 EACH INH; +EFFIENT10 MG PO; +FLEXERIL PO; +FUROSEMIDE 40 M40 MG PO; +KLOR-CON 1010 MEQ PO; +LEXAPRO 10 MG T10 M1 PO; +NITROSTAT0.4 M1 PO; +PIOGLITAZONE30 MG PO
[2021-04-24 11:31] VITALS: BP 162/73
[2021-04-24 12:05] LABS: ABSOLUTE EOSINOPHILS 0.1 thou/uL (0.0-0.7); ABSOLUTE LYMPHOCYTES 1.1 thou/uL (0.8-5.3); ABSOLUTE MONOCYTES 0.3 thou/uL (0.0-1.2); ABSOLUTE NEUTROPHILS 5.6 thou/uL (1.6-8.1); BASOPHILS 0.6 %; EOSINOPHILS 0.9 %; HEMOGLOBIN 11.2 gm/dL (12.0-15.0); LYMPHOCYTES 15.2 %; MCH 29.6 pg (26.0-34.0); MCHC 31.9 g/dL (28.0-37.0); MONOCYTES 4.6 %; MPV 7.8 fl. (7.2-11.1); NUCLEATED RBCS 0 /100WBC; PLATELET COUNT* 288 thou/uL (150-400); POLYS 78.7 %; RBC 3.76 mil/uL (4.20-5.00); RDW-CV 15.7 % (10.5-14.5); WBC 7.1 thou/uL (4.0-11.0)
[2021-04-24 12:15] LABS: CALCIUM 8.5 mg/dL (8.5-10.1); CREATININE 1.1 mg/dL (0.6-1.3); POTASSIUM 4.6 mmol/L (3.5-5.1)
[2021-04-24 12:24] LABS: ALBUMIN 3.3 g/dL (3.4-5.0); MAGNESIUM 1.9 mg/dL (1.8-2.4); TOTAL BILIRUBIN 0.3 mg/dL (<0.1-1.0); TOTAL PROTEIN 6.8 g/dL (6.4-8.2)
[2021-04-24 15:08] LABS: BE -0.3 mmol/L (-2 to +3)
[2021-04-24 15:15] LABS: PCO2 62.2 mmHg (35.0-45.0); PO2 213.3 mmHg (75.0-100.0); pH 7.268 (7.340-7.450)
--- NOTE | 2021-04-24 15:52 | EKG ---
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 : 1950 Requested By: Daniel Pereira Order Number: [id number] MD: Edson Woods Measurements Intervals [place] Rate: 81 P: 47 GA: 141 QRS: 106 QRSD: 145 T: 0 QT: 406 QTc: 472 Interpretive Statements Sinus rhythm RBBB and LPFB Baseline wander in lead(s) V6 Compared to ECG 03/23/2021 14:22:54 no change Electronically Signed On 04-24-2021 15:51:47 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
[2021-04-24 17:05] VITALS: BP 102/54
[2021-04-24 17:30] VITALS: BP 153/80
[2021-04-24 20:00] VITALS: BP 146/51
[2021-04-25] VITALS: BP 169/75
[2021-04-25 04:00] VITALS: BP 109/64
[2021-04-25 08:00] VITALS: BP 147/57
[2021-04-25 12:00] VITALS: BP 136/57
[2021-04-25 17:29] VITALS: BP 137/48
[2021-04-25 21:20] VITALS: BP 143/60
[2021-04-26] VITALS: BP 132/57
[2021-04-26 04:00] VITALS: BP 140/57
[2021-04-26 05:02] LABS: CREATININE 0.8 mg/dL (0.6-1.3); POTASSIUM 4.5 mmol/L (3.5-5.1)
[2021-04-26 06:54] LABS: HEMATOCRIT 32.9 % (37.0-47.0); HEMOGLOBIN 10.7 gm/dL (12.0-15.0); MCH 29.8 pg (26.0-34.0); MCHC 32.5 g/dL (28.0-37.0); MCV 91.8 fL (80.0-100.0); MPV 8.2 fl. (7.2-11.1); RBC 3.59 mil/uL (4.20-5.00); RDW-CV 15.4 % (10.5-14.5); WBC 9.8 thou/uL (4.0-11.0)
[2021-04-26 08:00] VITALS: BP 159/70
[2021-04-26 12:00] VITALS: BP 129/53
[2021-04-26 16:00] VITALS: BP 145/56
[2021-04-26 20:00] VITALS: BP 171/79
[2021-04-27] VITALS: BP 118/69
[2021-04-27 03:06] LABS: GLYCOHEMOGLOBIN (HGB A1C) 7.8 % (4.8-5.6)
[2021-04-27 04:00] VITALS: BP 150/50
[2021-04-27 05:28] LABS: HEMATOCRIT 35.6 % (37.0-47.0); HEMOGLOBIN 11.4 gm/dL (12.0-15.0); MCH 29.6 pg (26.0-34.0); MCV 92.5 fL (80.0-100.0); MPV 8.3 fl. (7.2-11.1); RBC 3.85 mil/uL (4.20-5.00); RDW-CV 15.1 % (10.5-14.5); WBC 8.2 thou/uL (4.0-11.0)
[2021-04-27 05:48] LABS: CALCIUM 8.7 mg/dL (8.5-10.1); POTASSIUM 4.6 mmol/L (3.5-5.1)
[2021-04-27 08:00] VITALS: BP 168/68
[2021-04-27] MEDS ORDERED: CEFDINIR300 MG PO (11:23)
[2021-04-27] MEDS ORDERED: PREDNISONE 10 M10 MG PO (11:23)
[2021-04-27 12:07] VITALS: BP 146/52
[2021-04-27 13:37] VITALS: BP 146/52
[2021-04-27 13:58] VITALS: BP 146/52
== END 2021-04-27 15:30 | disposition home health service (06) | DRG 189 ==
LOC: M.ERS 11:27 → M.2W 13:00 → M.TBA-ER 13:00 → M.2W 18:19
PROVIDERS: Family Medicine; ADMIT Internal Medicine; ATTEND Internal Medicine
PROC: 5A09357 Assistance with Respiratory Ventilation, Less than 24 Consecutive Hours, Continuous Positive Airway Pressure (ICD-10-PCS; principal; 2021-04-24)
PROC: 5A09357 Assistance with Respiratory Ventilation, Less than 24 Consecutive Hours, Continuous Positive Airway Pressure (ICD-10-PCS; 2021-04-24)
DX: J96.01 Acute respiratory failure with hypoxia (principal); J44.1 Chronic obstructive pulmonary disease with (acute) exacerbation; I50.32 Chronic diastolic (congestive) heart failure; Z68.41 Body mass index [BMI] 40.0-44.9, adult; J44.0 Chronic obstructive pulmonary disease with (acute) lower respiratory infection; E11.9 Type 2 diabetes mellitus without complications; I25.2 Old myocardial infarction; Z95.5 Presence of coronary angioplasty implant and graft; I10 Essential (primary) hypertension; Z82.49 Family history of ischemic heart disease and other diseases of the circulatory system; E66.01 Morbid (severe) obesity due to excess calories; Z90.49 Acquired absence of other specified parts of digestive tract; Z90.710 Acquired absence of both cervix and uterus; Z87.891 Personal history of nicotine dependence; J40 Bronchitis, not specified as acute or chronic; Z20.822 Contact with and (suspected) exposure to COVID-19